=== PATIENT | male | born 1980 | race Caucasian/White ===

== ENCOUNTER 2018-12-25 01:56 | Emergency (ER) | payer OTHER ==
[~2018-12-25] VITALS: Ht 170.2 cm; Wt 68.0 kg
[~2018-12-25 01:56] MED LIST: ALBU90OI INH; BENZ100A PO; Bactrim Ds Tab1 EACH PO; CEPH500 PO; CODGUAEL PO; HYDR1TAB94 PO; IBUP800 PO; MUPI2TC TOP; PSEU120ER PO; Percocet 5-3251 EACH PO
[2018-12-25] MEDS ORDERED: CEPH500 PO (03:54)
== END 2018-12-25 04:05 | disposition home or self-care (01) ==
LOC: ER 01:56
DX: S01.511A Laceration without foreign body of lip, initial encounter (principal); L08.9 Local infection of the skin and subcutaneous tissue, unspecified; F17.200 Nicotine dependence, unspecified, uncomplicated; Z88.0 Allergy status to penicillin; W22.8XXA Striking against or struck by other objects, initial encounter
CPT/HCPCS: 99283; A9270; A9270-GY

== ENCOUNTER 2020-07-16 13:02 | Emergency (ER) | payer SELFPAY ==
[~2020-07-16] VITALS: Ht 170.2 cm; Wt 72.6 kg
[2020-07-16] MEDS ORDERED: Cleocin HCl300 MG PO (13:20)
== END 2020-07-16 13:43 | disposition home or self-care (01) ==
LOC: ER 13:02
DX: K02.9 Dental caries, unspecified (principal); F17.200 Nicotine dependence, unspecified, uncomplicated; Z88.0 Allergy status to penicillin
CPT/HCPCS: 99282

== ENCOUNTER 2021-01-21 12:15 | Emergency (ER) | payer SELFPAY ==
[~2021-01-21] VITALS: Ht 172.7 cm; Wt 72.6 kg
[~2021-01-21 12:15] MED LIST changes: +Cleocin HCl300 MG PO
[2021-01-21 13:14] LABS: Source, Urine Clean Catch
[2021-01-21 13:21] LABS: Appearance, Urine Cloudy (Clear); Bilirubin, Urine Neg (Neg); Blood, Urine 2+ (Neg); Color, Urine Yellow (P-Yellow); Glucose Qualitative, Urine Neg (Neg); Ketones, Urine Neg (Neg); Leukocyte Esterase, Urine 3+ (Neg); Nitrite, Urine Neg (Neg); Protein, Urine 2+ (Neg); Specific Gravity, Urine 1.025 (1.003-1.022); Urobilinogen, Urine NORM (Normal)
[2021-01-21 13:36] LABS: Squamous Epithelial Cells Few /hpf (Few); White Blood Cells, Urine 25-50 /hpf (0-5)
[2021-01-21 13:37] LABS: Amorphous Light (0-Heavy); Bacteria Mod /hpf; Mucus Heavy (0-Heavy)
[2021-01-21] MEDS ORDERED: Vibramycin100 MG PO (15:24)
== END 2021-01-21 15:46 | disposition home or self-care (01) ==
LOC: ER 12:15
PROVIDERS: Physician Assistant
DX: N45.1 Epididymitis (principal); F17.200 Nicotine dependence, unspecified, uncomplicated; Z88.0 Allergy status to penicillin
CPT/HCPCS: 76870; 81001; 87086; 96372; 99284-25; A9270; J0696

== ENCOUNTER 2024-02-16 21:02 | Emergency (ER) | payer SELFPAY ==
[~2024-02-16] VITALS: Ht 170.2 cm; Wt 79.4 kg
[~2024-02-16 21:02] MED LIST changes: +Vibramycin100 MG PO
[2024-02-16 21:15] VITALS: BP 151/106
[2024-02-16] MEDS ORDERED: Ketorolac Tromethamine 15mg Vial IV ONE (22:05)
== END 2024-02-16 22:15 | disposition home or self-care (01) ==
LOC: ER 21:02
DX: S01.81XA Laceration without foreign body of other part of head, initial encounter (principal); S80.12XA Contusion of left lower leg, initial encounter; M79.662 Pain in left lower leg; F17.200 Nicotine dependence, unspecified, uncomplicated; Z88.0 Allergy status to penicillin; Y04.0XXA Assault by unarmed brawl or fight, initial encounter
CPT/HCPCS: 12013; 73590; 99283-25; J1885